=== PATIENT | female | born 1960 | race Caucasian/White ===

== ENCOUNTER → 2024-01-15 14:53 | Outpatient (REF) | payer OTHER, SELFPAY | LOC: DHCBC HW 14:53 | PROVIDERS: ATTENDING PHYSICIAN Internal Medicine Cardiovascular Disease; FAMILY PHYSICIAN Student in an Organized Health Care Education/Training Program | DX: I10 Essential (primary) hypertension (principal); R06.09 Other forms of dyspnea; R00.2 Palpitations | CPT/HCPCS: 93306 ==

== ENCOUNTER → 2024-01-26 15:04 | Outpatient (REF) | payer OTHER, SELFPAY | LOC: RCS 15:04 | PROVIDERS: ATTENDING PHYSICIAN Internal Medicine Cardiovascular Disease; FAMILY PHYSICIAN Student in an Organized Health Care Education/Training Program | DX: R06.09 Other forms of dyspnea (principal) | CPT/HCPCS: 93017 ==

== ENCOUNTER 2025-04-24 19:07 | Emergency (ER) | payer SELFPAY ==
[2025-04-24 19:10] VITALS: BP 154/97
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
[2025-04-24] MEDS: DECADRON 10 MG PO (22:18)
[2025-04-24] MEDS: AUGMENTIN 875 MG/125 MG 1 TABLET PO (22:18)
== END 2025-04-24 22:51 | disposition home or self-care (01) ==
LOC: EMR 19:07
PROVIDERS: EMERGENCY PHYSICIAN Student in an Organized Health Care Education/Training Program; FAMILY PHYSICIAN Family Medicine
DX: H66.91 Otitis media, unspecified, right ear (principal); R09.81 Nasal congestion; J01.90 Acute sinusitis, unspecified; R00.2 Palpitations; R06.02 Shortness of breath; Z59.71 Insufficient health insurance coverage; Z59.86 Financial insecurity; I10 Essential (primary) hypertension; J45.909 Unspecified asthma, uncomplicated; Z87.891 Personal history of nicotine dependence; Z88.6 Allergy status to analgesic agent
CPT/HCPCS: 99283; 93005

== ENCOUNTER 2025-07-13 15:28 | Inpatient (IN) | payer OTHER, SELFPAY ==
[2025-07-13] VITALS (7 sets, daily range): BP systolic 131–200; BP diastolic 71–115; BMI 35.2
[2025-07-13 12:58] LABS: Hematocrit 45.1 % (37.0-47.0); Hemoglobin 14.3 g/dL (12.0-16.0); Mean Corp Hgb Conc. 31.7 g/dL (33.0-37.0); Mean Corpuscular Volume 84.6 fL (81.0-99.0); Nucleated Red Blood Cells % 0 %; Platelet Count 329 10^3/uL (130-400); Red Cell Dist. Width 14.0 % (11.5-14.5)
[2025-07-13 13:13] LABS: D-Dimer 3.89 ug/mlFEU (0.00-0.50)
[2025-07-13 13:23] LABS: ALT (SGPT) 17 U/L (0-35); AST (SGOT) 18 U/L (14-36); Albumin 4.6 g/dl (3.5-5.0); Alkaline Phosphatase 91 U/L (38-126); Blood Urea Nitrogen 13 mg/dl (7-17); Calcium 10.1 mg/dl (8.4-10.2); Carbon Dioxide 28 mmol/L (22-30); Chloride 107 mmol/L (98-107); Glucose 127 mg/dl (70-99); Potassium 4.3 mmol/L (3.5-5.1); Sodium 142 mmol/L (135-145); Total Protein 7.7 g/dl (6.3-8.2); Troponin I < 0.012 ng/ml; eGFR > 60.00
--- NOTE | 2025-07-13 13:24 | ED.GENMED ---
History of Present Illness
General
Chief Complaint: Breathing Problem
Source: patient
Exam Limitations: none
Time Seen by Provider: 07/13/25 12:35
Nursing documentation reviewed up to this point in time: agreed with
History of Present Illness
History of Present Illness:
Patient with history of asthma and hypertension on losartan, presents to ED secondary to worsening shortness of breath with intermittent dry cough at nighttime over the past 1 week. Denies fever or chills. Denies chest pain. Denies vomiting or
diarrhea. Denies headache. Denies recent change in medications or diet. Denies of leg pain or swelling. Denies recent travel or surgery. Denies sick contact. Denies previous history of similar symptoms. Of note, patient states that since her
insurance changed her medication from Symbicort to 'generic', her breathing has gotten worse. There is no family history of blood clots. Denies family history of heart disease.
Review of Systems
Review of Systems
Allergies reviewed?: Yes
All Other Systems: ROS reviewed and negative except as documented in HPI and ROS
Constitutional: Reports no symptoms; Denies fever
EENT: Reports no symptoms
Respiratory: Reports cough and trouble breathing
ABD/GI: Reports no symptoms
Musculoskeletal: Reports no symptoms; Denies muscle pain or edema
Skin: Reports no symptoms
Neurological: Reports no symptoms
Phy Exam
Physical Exam
Physical Exam:
Physical Exam
General: moderate respiratory distress, not acutely ill. afebrile.
Head: nc/at. eomi
Neck: supple. normal range of motion. no jvd
Heart: tachycardic, no murmur.
Lungs: no acute respiratory distress. clear bilaterally
Abdomen: normal bowel sounds. not tender.
Neuro: alert and oriented x 3. no focal neurological deficits
Skin: no rash
Psychiatric: well kept. interactive and cooperative
Extremities: no edema. no calf tenderness.
Scores
Heart Failure Risk
Heart Failure Risk Score: Not Applicable
Course
Orders/Labs/Results
Orders:
Orders
07/13/25 12:16
EKG [Electrocardiogram (*1)] Urgent
Reason for Study: Shortness of Breath
EKG- Treatment ONCE
07/13/25 12:51
COVID-19 Antigen Urgent
Source: Nasal Swab
Complete Blood Count/With Diff Urgent
Comprehensive Metabolic Panel Urgent
D-Dimer Urgent
NT-proBNP Urgent
PTT Urgent
Comment: ADD ON
Troponin I Urgent
07/13/25 13:23
CT Chest PE Study Urgent
Comment:
Reason For Exam: hypoxia/sob w elevated d-dimer
07/13/25 14:04
Heparin 6,800 units IV NOW STA
Nursing to Place Non Medication Order As Directed
Physician Order: PTT 6 hours after initial start of Heparin infusion
07/13/25 14:08
PTT Urgent
Comment: Obtain baseline before beginning heparin infusion if not already collected
07/13/25 14:15
Heparin 51998 Units/250 ml 25,000 units in 250 ml IV PER PROTOCOL
Weight to be used for heparin protocol in kilograms (kg):: 85
Protocol:: DVT/PE
PTT Goal Range to be used:: PTT 73 to 111 seconds
Order type:: Initial
INITIAL Infusion Dose (UNITS/KG/hr) & then follow protocol:: 18 units/kg/hr
Infusion Dose in UNITS/hr & then follow protocol (UNITS/hr):: 1,500
INFUSION RATE in mL/hr & then follow protocol (mL/hr):: 15
For DVT/PE algorithm, re-bolus for low PTT?: Yes
PTT less than or equal to 64 seconds:: Re-bolus 80 units/kg (max 10,000units). Increase by 300 units/hr
(+ 3mL/hr)
PTT 64.1 to 72.9 seconds:: Re-bolus 40 units/kg (max 5,000 units). Increase by 200 units/hr
(+ 2mL/hr)
PTT 73 to 111 seconds:: Target Range. No change in rate.
PTT 111.1 to 130.9 seconds:: Decrease rate by 200 units/hr (- 2 mL/hr)
PTT 131 to 199.9 seconds:: HOLD for 1 hr. Then decrease by 300 units/hr (- 3mL/hr)
PTT greater than or equal to 200 seconds:: HOLD for 2 hrs & Notify Provider. Then decrease by 300 units/hr
(- 3mL/hr)
Lab follow-up:: Each change, PTT q6h until 2 consecutive are therapeutic. Then
PTT daily.
07/13/25 14:23
Heparin 6,800 units IV PRN PRN
07/13/25 14:24
Heparin 3,400 units IV PRN PRN
07/13/25 14:41
Admit/Transfer Patient As Directed
Co-Sign Provider:
Level of Care: Inpatient admission
Assign to:: Telemetry
Physician / Group: Ilir Leon
Diagnosis: pulmonary embolism
Reason for Telemetry: Arrhythmia
Date to Stop Telemetry: 07/16/25
Time to Stop Telemetry: 11:00
Reason for Hospitalization: pulmonary embolism
Expected length of stay greater than two midnights?: Yes
ELOS- Estimated Length of Stay in days: 3
I certify the patient meets the requirements for IP care: Yes
PRN Pain Medication Management As Directed
May give lesser potent ordered pain med per pt: Yes
preference::
Protocol:: Medication orders for pain may be administered in a
manner that supports deferring to patient preference
when the pt is:
- Requesting an ordered lesser potent pain medication.
Least to most potent pain medications are defined
as: acetaminophen < NSAID < tramadol < opioids
(morphine, oxycodone, hydromorphone).
- Requesting a lesser dose of the same medication IF
ORDERED.
- Requesting a less intrusive route of administration
if both routes are prescribed by the provider (PO <
IV).
07/13/25 14:42
Code Status As Directed
Resuscitation Status: Full Code
07/13/25 Dinner
Regular
At Your Request: Full Participation
Does patient need a safe tray?: No
07/13/25 17:08
Acetaminophen [Tylenol] 650 mg PO Q4HPRN PRN
07/13/25 17:08
Echo 2D MMode Color/Doppler Routine
Reason for Study: pulmonary embolism
PULMONARY CONSULT Routine
Consulting Provider: Anna Fish
Was physician already notified: Yes
Activity As Directed
Activity Level: Ambulate
Intake/ Output As Directed
Frequency: Per unit guidelines
Nursing to Place Non Medication Order As Directed
Physician Order: - PTT at end of alteplase infusion, then q1h until PTT is < 70 seconds.
- Notify provider when PTT is < 70 seconds to re-start heparin infusion at previous rate and
then follow heparin protocol.
Precautions As Directed
Type of Precautions: Bleeding
Comment: bleeding checks every q15 min x 2hr, q30 min x 6hr, q1 hour x 16 hours
Thrombolytic Precautions As Directed
Thrombolytic Precautions:: [place] bleeding precautions. Minimize invasive procedures and venipunctures,
avoid IM injections and over-handling patient, and check all puncture sites for
bleeding. Assess the patient and notify provider for signs and symptoms of
internal or serious bleeding, such as changes in vital signs or evidence of blood
in the urine or stool.
Vital Signs As Directed
Frequency: Per unit guidelines
Weight As Directed
Frequency: Once
Comment: on admission
O2 Therapy [RESP] Routine
Titrate/Wean O2 to maintain O2 sat greater than (%): 90
Special Instructions: wean as tolerated
Pulse Ox/cont/shift [RESP] Routine
Quantity: 1
Special Instructions: check O2 Sat Q8 hours and at each change in oxygen liter flow and FiO2
Pulse Ox/spot Check [RESP] Routine
Quantity: 1
07/13/25 18:00
Atorvastatin [Lipitor] 40 mg PO QPM
Losartan [Cozaar] 50 mg PO QPM
07/13/25 20:00
Fluticasone/Salmeterol 115/21 [Advair Hfa 115/21 Mcg Inhaler] 2 puff INH R BID
07/13/25 20:45
PTT Urgent
Comment: Obtain baseline before beginning heparin infusion if not already collected
07/14/25 06:00
Complete Blood Count/No Diff IN AM
07/16/25 11:00
DC Protocol for Telemetry ONCE
Abnormal Lab Results
07/13/25
12:51
MCH 26.8 L pg
(27.0-31.0)
MCHC 31.7 L g/dL
(33.0-37.0)
D-Dimer 3.89 H ug/mlFEU
(0.00-0.50)
Glucose 127 H mg/dl
(70-99)
07/13/25 12:51
07/13/25 12:51
Vital Signs
Initial and Last Documented VS:
Initial Vital Signs
Temp Pulse Resp BP Pulse Ox
98.4 F 119 36 200/115 77
07/13/25 12:22 07/13/25 12:22 07/13/25 12:22 07/13/25 12:22 07/13/25 12:22
Last Documented Vital Signs
Temp Pulse Resp BP Pulse Ox
98.1 F 91 17 156/85 95
07/13/25 17:23 07/13/25 18:19 07/13/25 17:23 07/13/25 18:19 07/13/25 17:23
MDM/Problems Addressed
MDM/Problems Addressed:
D-dimer elevated. CTA chest revealed bilateral distal PE, without evidence of right heart strain. Patient's initial hypoxia improved with supplemental oxygen via nasal cannula. Initial hypertension improved during observation. Patient will be
started on heparin protocol and will be admitted for further evaluation and treatment.
Critical care statement: A total of 40 minutes of critical care time was provided for this patient. This includes management of unstable vital signs, evaluation of the patient at bedside, reviewing the patient's pertinent medical records, review of
old EKGs and review of pertinent medical records. This time with separate from time utilized to perform the aforementioned documented procedures
*Pulse Oximetry
SaO2: 87
Nasal Cannula flow liters per minute: 2
Oxygen Mode of Delivery: Room air
Patient hypoxic: yes
*EKG
Interpreted by ED Provider?: Yes
EKG Intrepretation Date: 07/13/25
Heart Rate: 118
Rate: tachycardiac
Rhythm: sinus
[place]: normal axis
Interval: normal interval
*Critical Care Note
Total Time (30-74mins, 75-104mins- exclusive of procedures): 40 min
ED Attending Note
-
Portions of this chart may have been created with voice recognition software.� Occasional wrong word or��sound alike� substitutions may have occurred due to the inherent limitations of voice recognition software.
Discharge Plan
Departure
Patient Disposition: Admit
Date of Disposition: 07/13/25
Time of Disposition: 14:06
Admit to: IMU
Presentation/result/management discussed w/ accepting MD/DO: Hospitalist
Discharge Problem:
Pulmonary embolism
Interventions
Interventions:
*Risk Screen - Suicide Last Done: 07/13/25 12:38
*General Assessment Last Done: 07/13/25 12:38
*Neglect/Abuse Screening Last Done: 07/13/25 12:38
*ED COVID-19 Vaccine History Last Done: 07/13/25 12:38
*ED Influenza Vaccine History Last Done: 07/13/25 12:38
ED- Cardiac Assessment Last Done: 07/13/25 12:39
ED- Pulmonary Assessment Last Done: 07/13/25 12:39
[2025-07-13 13:27] LABS: COVID-19 Antigen Negative (Negative)
--- NOTE | 2025-07-13 14:07 | HPS.HSE ---
Family Physician
-
Family Physician: Tamra Man
Chief Complaint
-
shortness of breath
History of Present Illness
Patient is a 65-year-old female with past medical history significant for hypertension, hyperlipidemia and asthma who presented to [facility] ED for evaluation of increased shortness of breath over the past week to week and a half. Patient reports
shortness of breath has been exertional in nature and would resolve with rest. She feels it was similar to a previous asthma exacerbation a few years ago. She states that yesterday the shortness of breath was significantly worse and was considering
evaluation at Urgent Care but decided that if continued this morning she would get evaluation. This morning was even worse than yesterday so she decided evaluation in ED would likely be more appropriate. Patient states she recently was on a [address] to visit family, no other travel and no recent illness. Denies any cough, chest pain or palpitations.
Medical History
Past Medical History
Past Medical History: Reports Other
Additional Past Medical History:
hypertension
hyperlipidemia
asthma
Past Surgical History: Reports Other
Additional Past Surgical History:
Social History
Tobacco: Non-smoker
Alcohol: None
Drug: None
Living: With Family
Employment: Not Employed
Family History
Family History: Other (Father: CAD; Brother: CAD; Mother: Lung cancer)
Allergies / Home Medications
Allergies reflects when Allergies were last updated in [employer].
Home Medications with original date entered in [employer]
Allergy/Medication List:
Allergies
Allergy/AdvReac Type Severity Reaction Status Date / Time
aspirin Allergy Unknown Verified 04/24/25 19:10
Home Medications
atorvastatin 40 mg tablet (Lipitor) 40 mg PO QPM 07/13/25
fluticasone 250 mcg-salmeterol 50 mcg/dose blistr powdr for inhalation (Advair Diskus) 1 inh inhalation R BID 07/13/25
losartan 50 mg tablet 50 mg PO QPM 07/13/25
Review of Systems
-
History Source: Patient
Constitutional: Denies Fever or Chills
EENT: Denies Sore Throat
Respiratory: Reports Trouble Breathing (exertional dyspnea ); Denies Cough
Cardiac: Denies Chest Pain, Diaphoresis, Palpitations or Syncope
Abdomen/GI: Denies Abdominal Pain, Nausea, Vomiting or Diarrhea
: Denies Dysuria, Frequency or Urgency
Musculoskeletal: Denies Joint Pain
Skin: Denies Rash
Neurological: Denies Dizzy, Headache, Weakness or Numbness
Endocrine: Denies Polyuria or Polydipsia
Hematologic/Lymphatic: Denies Bleeding or Bruising
Physical Exam
Vital Signs
Vital Signs
Temp Pulse Resp BP Pulse Ox
98.4 F 117 22 193/96 87
07/13/25 12:22 07/13/25 12:31 07/13/25 12:31 07/13/25 12:30 07/13/25 13:27
Physical Exam
General: Well Developed, Well Nourished, Comfortable, Conversant and Obese
HEENT: NormoCephalic, Moist mucous membranes, Nose Appears Normal and Ears Appear Normal
Respiratory: Clear and Non Labored Respirations
Cardiac: S1/S2, Regular Rhythm and Tachycardia; No Murmur, Rub, Gallop, Peripheral Edema, Calf Tenderness or JVD
GI: Soft, Non Tender, Non Distended and Normal Bowel Sounds
Musculoskeletal: No Clubbing, No Cyanosis and No Edema
Skin: Warm and IV/Catheter Site
Neuro: Awake and AO x 3
Hematologic/Lymphatic: No Lymphadenopathy
Psych: Calm and Intact Judgment/Insight
Laboratory Results
-
07/13/25 12:51
07/13/25 12:51
Laboratory Results
Total Bilirubin 0.9 mg/dl (0.2-1.3) 07/13/25 12:51
AST 18 U/L (14-36) 07/13/25 12:51
ALT 17 U/L (0-35) 07/13/25 12:51
Alkaline Phosphatase 91 U/L (38-126) 07/13/25 12:51
Troponin I < 0.012 ng/ml 07/13/25 12:51
Data Reviewed
-
CT Scan: Report Reviewed by me (Chest: 1. Positive for emboli within both distal main pulmonary arteries, extending into the segmental branches feeding the right upper lobe, right lower lobe, left upper lobe, and left lower lobe. 2. No CT evidence
of right heart strain. 3. Clear lungs.)
Medical Tests (Nuc Med, Echo, EKG etc): Report Reviewed by me (EKG: SINUS TACHYCARDIA RIGHT ATRIAL ENLARGEMENT LOW VOLTAGE QRS POSSIBLE ANTEROLATERAL INFARCT (CITED ON OR BEFORE 24-Apr-2025))
Lab Data: Labs Reviewed by me (pBNP 1640)
Impression/Plan
-
IMPRESSION/PLAN:
#shortness of breath likely 2/2 pulmonary embolism
pBNP [address]: 1. Positive for emboli within both distal main pulmonary arteries, extending into the segmental branches feeding the right upper lobe, right lower lobe, left upper lobe, and left lower lobe.
2. No CT evidence of right heart strain.
3. Clear lungs.
EKG: SINUS TACHYCARDIA
RIGHT ATRIAL ENLARGEMENT
LOW VOLTAGE QRS
POSSIBLE ANTEROLATERAL INFARCT (CITED ON OR BEFORE 24-Apr-2025)
Covid: negative
- Admit to Telemetry
- Consult pulmonary
- Heparin gtt
- ECHO
#hypertension
- continue losartan
#hyperlipidemia
- continue atorvastatin
#asthma
- continue Advair
Code status: full code
DVT prophylaxis: heparin gtt
--- NOTE | 2025-07-13 14:13 | W.PN.UPDATE ---
Update Note
Progress Note Update
This note serves as an addendum to the H&P by silo tender Shara Bono
HPI�
65F HX asthma and hypertension on losartan seen at ER:
- worsening shortness of breath with intermittent dry cough at nighttime over the past 1 week.
- No FHX blood clots.
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
Of note
states that since her insurance changed her medication from Symbicort to 'generic', her breathing has gotten worse.
ROS
Denies fever or chills. Denies chest pain. Denies vomiting or diarrhea. Denies headache. Denies recent change in medications or diet. Denies of leg pain or swelling. Denies recent travel or surgery. Denies sick contact. Denies previous
history of similar symptoms.
Relevant VS
Temp Pulse Resp BP Pulse Ox
98.4 F 117 22 193/96 87
07/13/25 12:22 07/13/25 12:31 07/13/25 12:31 07/13/25 12:30 07/13/25 13:27
PE
Gen: moderate respiratory distress, not acutely ill
HEENT: anicteric
Neck: no visible JVD
Lungs: CTA
Cor: tachycardic
Abdomen:�soft benign
SHADE CLASSIFIER: NFND
MS: no edema
Psych: interactive and cooperative
Relevant Data�
Labs
07/13/25 07/13/25
12:51 14:08
WBC 9.3
Hgb 14.3
Plt Count 329
APTT Pending
D-Dimer 3.89 H
Potassium 4.3
Creatinine 0.8
eGFR > 60.00
Troponin I < 0.012
Ios-J-Ppbgcliwobu Pept 1640
07/13/25: CTC PE study
1. Positive for emboli within both distal main pulmonary arteries, extending into the segmental branches feeding the right upper lobe, right lower lobe, left upper lobe, and left lower lobe.
2. No CT evidence of right heart strain.
3. Clear lungs.
NO PRIOR hospitalist admission:
ASSESSMENT & PLAN
Pending Rx reconciliation
Acute b/l distal PEs presumed provoked due to recent travelling in an car for [address] and acute hypoxic RI
No CT evidence of right heart strain.
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
- elevated DD
- Hemodynamically stable
- Agree with Heparin protocol
- POx goal : to keep > 94 % , PRN O2
- Consult Pul a plus or minus IR to eval thrombolytics
- to consider [employer] evaluation as outpatient
DVT Px: Heparin gtt
Full
IP TLM
[2025-07-13] MEDS: HEPARIN 25000 UNITS/250 ML IV (14:42)
[2025-07-13] MEDS: HEPARIN 6800 UNITS IV (14:43)
[2025-07-13 14:44] LABS: APTT 24.9 Sec (23.4-35.0)
[2025-07-13 15:01] LABS: APTT 24.2 Sec (23.4-35.0)
--- NOTE | 2025-07-13 18:04 | PTCARENOTE ---
Rn retail pricing coordinator- Admission assessment completed remotely via phone.
[2025-07-13] MEDS: LIPITOR 40 MG PO (18:19)
[2025-07-13] MEDS: COZAAR 50 MG PO (18:19)
[2025-07-13] MEDS: ADVAIR HFA 115/21 MCG INHALER 2 PUFF INH (20:53)
[2025-07-13 21:12] LABS: APTT 90.8 Sec (23.4-35.0)
[2025-07-14 03:15] VITALS: BP 126/72
[2025-07-14 03:53] LABS: Hematocrit 37.6 % (37.0-47.0); Hemoglobin 12.4 g/dL (12.0-16.0); Mean Corp Hgb Conc. 33.0 g/dL (33.0-37.0); Mean Corpuscular Volume 86.0 fL (81.0-99.0); Platelet Count 272 10^3/uL (130-400); Red Cell Dist. Width 13.8 % (11.5-14.5)
[2025-07-14 04:02] LABS: APTT 95.1 Sec (23.4-35.0)
[2025-07-14 07:30] VITALS: BP 128/97
[2025-07-14] MEDS: ADVAIR HFA 115/21 MCG INHALER INH (08:23)
--- NOTE | 2025-07-14 08:37 | CARDSERVLU ---
Echocardiogram with [facility] completed after protocol screening completed. Allergies verified.
Patent IV site: __Rt AC___
IV site flushed with 0.9% NaCl pre and post administration.
Diluted bolus method utilized to enhance visualization of ventricular laurent.
Total volume given: __2.5__ mL
Patient tolerated all procedures well without complications.
[2025-07-14 11:19] VITALS: BP 142/83
--- NOTE | 2025-07-14 12:32 | CM ---
commodity manager reviewed patient's chart and met with patient and patient's son and daughter live with her in a multilevel home, patient is independent with adl's and ambulation, no dme, patient drives, patient is currently on oxygen at 3 liters 6
liters with activity, patient aware she may need home oxygen, patient also on Eliquis cost of Eliquis has zero copay, patient aware.
PCP: Tamra Man
Pharmacy: [facility] in [place].
Plan; Home at discharge, needs home oxygen. Eliquis has zero copay.
[2025-07-14] MEDS: ELIQUIS 10 MG PO ×2 (12:44→21:30)
--- NOTE | 2025-07-14 14:16 | W.PN.HOSP.TC ---
Today's Communication/Plan
-
Assessment / Plan
Assessment / Plan
General: No Apparent Distress, Comfortable and Conversant
HEENT: NormoCephalic, Moist mucous membranes, Atraumatic
Respiratory: Clear and Non Labored Respirations
Cardiac: S1/S2 and Regular Rhythm; No Rub or Gallop
GI: Soft, Non Tender, Non Distended and Normal Bowel Sounds
Musculoskeletal: No Edema, no deformity
Skin: Warm and dry
: NO [place]
Neuro: Awake, Alert, Nonfocal/grossly intact
Psych: Calm and Intact Judgment/Insight
Ms. Mcfadden is a 65-year-old female with a medical history of hypertension, hyperlipidemia, and asthma who presented with progressively worsening dyspnea. She was found to have bilateral pulmonary emboli and found to be hypoxic. She was started on
anticoagulation with IV heparin and supplemental oxygen via low flow nasal cannula. She has been admitted for further evaluation and management.
Bilateral pulmonary emboli:
- Appears provoked after recent road trip in her car
- CT angiography shows blood within the bilateral distal main pulmonary arteries extending into the segmental branches feeding the right upper lobe, right lower lobe, left upper lobe, and left lower lobe
- No evidence of right heart strain on echocardiogram
- Have transitioned anticoagulation to Eliquis, will continue 10 mg twice daily for 7 days then transition to 5 mg twice daily thereafter
- She will need to follow-up with hematology in the outpatient setting for further evaluation and discussion on optimal duration of anticoagulation treatment
- Continuing supplemental oxygen via low flow nasal cannula for associated acute hypoxic respiratory failure, will titrate as able, assess for home oxygen needs prior to discharge
- Appreciate case management confirming $0 co-pay for Eliquis
Hypertension:
- Chronic, stable
- Continue home losartan 50 mg daily
DVT prophylaxis: Eliquis
CODE STATUS: Full code
Anticipated Discharge: 24 - 48 hours
Subjective/Interval History
-
Date of Service: July 14, 2025
Patient was seen and examined at bedside this morning. Currently comfortable. Admitted overnight and started on IV heparin drip for treatment of pulmonary embolism. Also hypoxic requiring supplemental oxygen via low flow nasal cannula.
Objective Data
-
Labs:
Laboratory Results
07/14/25
03:38
WBC 9.2
Hgb 12.4
Hct 37.6
Plt Count 272
APTT 95.1 H
Vital Signs:
Vital Signs
Temp Pulse Resp BP Pulse Ox
97.5 F 93 16 142/83 94
07/14/25 11:19 07/14/25 11:19 07/14/25 11:19 07/14/25 11:19 07/14/25 11:19
I&O
07/13/25 07/14/25 07/15/25
06:59 06:59 06:59
Intake Total 500 / 500
Balance 500 / 500
Review of Systems
-
History Source: Patient
All other systems: Reviewed and negative
Physical Exam
-
General: No Apparent Distress
[2025-07-14 15:25] VITALS: BP 148/84
[2025-07-14] MEDS: COZAAR 50 MG PO (18:08)
[2025-07-14] MEDS: LIPITOR 40 MG PO (18:08)
[2025-07-14 19:00] VITALS: BP 138/78
[2025-07-14] MEDS: ADVAIR HFA 115/21 MCG INHALER 2 PUFF INH (20:05)
[2025-07-14 23:00] VITALS: BP 142/74
[2025-07-15 03:00] VITALS: BP 121/60
[2025-07-15 07:00] VITALS: BP 124/74
[2025-07-15] MEDS: ADVAIR HFA 115/21 MCG INHALER 2 PUFF INH (07:56)
[2025-07-15] MEDS: ELIQUIS 10 MG PO (08:03)
[2025-07-15 11:00] VITALS: BP 122/79
--- NOTE | 2025-07-15 12:05 | W.PN.HOSP.TC ---
Today's Communication/Plan
-
Assessment / Plan
Assessment / Plan
General: No Apparent Distress, Comfortable and Conversant
HEENT: NormoCephalic, Moist mucous membranes, nasal cannula
Respiratory: Clear and Non Labored Respirations
Cardiac: S1/S2 and Regular Rhythm; No Rub or Gallop
GI: Soft, Non Tender, Non Distended and Normal Bowel Sounds
Musculoskeletal: No Edema, no deformity
Skin: Warm and dry
: NO [place]
Neuro: Awake, Alert, Nonfocal/grossly intact
Psych: Calm and Intact Judgment/Insight
Ms. Mcfadden is a 65-year-old female with a medical history of hypertension, hyperlipidemia, and asthma who presented with progressively worsening dyspnea. She was found to have bilateral pulmonary emboli and found to be hypoxic. She was started on
anticoagulation with IV heparin and supplemental oxygen via low flow nasal cannula. She has been admitted for further evaluation and management.
Bilateral pulmonary emboli:
- Appears provoked after recent road trip in her car
- CT angiography shows blood within the bilateral distal main pulmonary arteries extending into the segmental branches feeding the right upper lobe, right lower lobe, left upper lobe, and left lower lobe
- No evidence of right heart strain on echocardiogram
- Have transitioned anticoagulation to Eliquis, will continue 10 mg twice daily for 7 days then transition to 5 mg twice daily thereafter
- She will need to follow-up with hematology in the outpatient setting for further evaluation and discussion on optimal duration of anticoagulation treatment
- Continuing supplemental oxygen via low flow nasal cannula for associated acute hypoxic respiratory failure, will arrange for home oxygen as she appears to be requiring 2 L via nasal cannula at this time, will need reevaluation as outpatient and
titration to room air as able
- Appreciate case management confirming $0 co-pay for Eliquis
Acute epoxy respiratory failure:
- Secondary to bilateral pulmonary emboli
- Plan for home oxygen arrangement, currently requiring 2 L via nasal cannula
Hypertension:
- Chronic, stable
- Continue home losartan 50 mg daily
DVT prophylaxis: Eliquis
CODE STATUS: Full code
Anticipated Discharge: Today
Subjective/Interval History
-
Date of Service: July 15, 2025
Patient was seen and examined at bedside this morning. Breathing comfortably and saturating appropriately on 3 L via nasal cannula.
Objective Data
-
Vital Signs:
Vital Signs
Temp Pulse Resp BP Pulse Ox
97.4 F 80 16 124/74 92
07/15/25 07:00 07/15/25 07:57 07/15/25 07:57 07/15/25 07:00 07/15/25 07:00
I&O
07/14/25 07/15/25 07/16/25
06:59 06:59 06:59
Intake Total 500 / 500 720 / 720
Balance 500 / 500 720 / 720
Review of Systems
-
History Source: Patient
All other systems: Reviewed and negative
Physical Exam
-
General: No Apparent Distress
--- NOTE | 2025-07-15 13:57 | W.DCSUMMARY ---
Discharge Summary
Discharge Data
Date of Admission: 07/13/25
Date of Discharge: 07/15/25
Total time spent discharging patient (in min): 50
-
Pending Results: No
Hospital Course
Ms. Mcfadden is a 65-year-old female with a medical history of hypertension, hyperlipidemia, and asthma who presented with progressively worsening dyspnea. She was found to have bilateral pulmonary emboli and found to be hypoxic. She was started on
anticoagulation with IV heparin and supplemental oxygen via low flow nasal cannula. She was admitted for further evaluation and management.
Echocardiogram showed no evidence of right heart strain. Her hypoxia improved after being started on anticoagulation. She was able to be titrated down to 2 L via nasal cannula and arrangements have been made for home oxygen. Her anticoagulation
has been transitioned to Eliquis for which she has a $0 co-pay. She will need to follow-up with hematology in the outpatient setting for further evaluation and discussion of optimal duration of anticoagulation treatment. However she should
anticipate staying on anticoagulation for at least 6 months. At the time of hospital discharge she was medically stable.
General: No Apparent Distress, Comfortable and Conversant
HEENT: NormoCephalic, Moist mucous membranes, nasal cannula
Respiratory: Clear and Non Labored Respirations
Cardiac: S1/S2 and Regular Rhythm; No Rub or Gallop
GI: Soft, Non Tender, Non Distended and Normal Bowel Sounds
Musculoskeletal: No Edema, no deformity
Skin: Warm and dry
: NO [place]
Neuro: Awake, Alert, Nonfocal/grossly intact
Psych: Calm and Intact Judgment/Insight
Discharge Plan
-
Patient Disposition: Home (Routine Discharge)
Discharge Diagnosis/Procedures: Acute provoked pulmonary embolism
Activity Restrictions/Additional Instructions:
You were admitted for evaluation and management of blood clot in your lungs (pulmonary embolism). You were started on blood thinners to help your body breakdown the blood clots over time. You needed some supplemental oxygen via nasal cannula which
is very often expected with pulmonary embolism. You were able to be switched to an oral blood thinner called Eliquis which is covered by your insurance with $0 co-pay. You will stay on Eliquis for at least 6 months. Your heart was evaluated with
an ultrasound (echocardiogram) and found to be functioning appropriately. You were able to be titrated down on your supplemental oxygen to 2 L via nasal cannula. Arrangements have been made for you to use supplemental oxygen at home. You should
continue monitoring your pulse ox and you should expect to be able to be titrated off of supplemental oxygen as your pulmonary emboli resolve. Your vital signs including blood pressure remained stable. Your lab work was all normal. You are
medically stable for discharge to home. You will need to follow-up with your primary care physician and with a high risk case manager to decide how long you will need to remain on the blood thinning medication.
Referrals:
Lobito Henry DO [Active, Hematology / Oncology]
Referral Note: B/L PE, started on Eliquis
Tamra Man DO [Family Provider, Family Practice]
Prescriptions:
New
Eliquis DVT-PE Treat 30D Start 5 mg (74 tabs) tablets,dose pack
See Rx Instructions .ROUTE .COMPLEX Qty: 74 0RF
Rx Instructions:
orally per package directions
Continued
losartan 50 mg Tablet
50 mg PO QPM
atorvastatin [Lipitor] 40 mg Tablet
40 mg PO QPM
fluticasone propion-salmeterol [Advair Diskus] 250-50 mcg/dose Blister With Device
1 inh INHALATION R BID
Discharge Orders:
Discharge Patient (As Directed); Ordered 07/15/25
Ordered By: Baljit Watts
Discharge Date and Time
Print Language: CZECH
--- NOTE | 2025-07-15 14:09 | CM ---
Chart reviewed and plan is for patient to return to home with oxygen, patient has been tested by respiratory therapist and patient qualifies for oxygen at 2 liters, referral sent to [facility] including script, H&P, progress notes, physician
documentation, and respiratory therapy notes, per [facility] oxygen will be delivered at 4pm, and patient has been provided with number [phone] and [facility] will reach out directly to patient to coordinate delivery.
Plan; Home today with home oxygen.
[2025-07-15 15:15] VITALS: BP 130/71
== END 2025-07-15 15:54 | disposition home or self-care (01) | DRG 176 ==
LOC: 4 WEST ACU 15:28
PROVIDERS: Nurse Practitioner Family; ADMITTING PHYSICIAN Internal Medicine; ATTENDING PHYSICIAN Internal Medicine; EMERGENCY PHYSICIAN Emergency Medicine; FAMILY PHYSICIAN Family Medicine
DX: I26.99 Other pulmonary embolism without acute cor pulmonale (principal); Z11.52 Encounter for screening for COVID-19; Z79.899 Other long term (current) drug therapy; I10 Essential (primary) hypertension; E78.5 Hyperlipidemia, unspecified; J45.909 Unspecified asthma, uncomplicated; I08.0 Rheumatic disorders of both mitral and aortic valves; Z79.51 Long term (current) use of inhaled steroids; Z99.81 Dependence on supplemental oxygen
CPT/HCPCS: 71275; 80053; 83880; 84484; 85025; 85027; 85379; 85730; 87811; 93005; 93306; 94640; 94761; 96374; 99291; Q9950; Q9967